=== PATIENT | female | born 1980 | race Caucasian/White ===

== ENCOUNTER → 2019-09-11 | Outpatient (CLI) | payer BC ==
[~2019-09-11] MED LIST: GADOBENATE DIMEGLUMINE 1 ML IV ONE
--- NOTE | 2019-09-11 11:57 | Diagnostic Imaging Report ---
History: Multiple sclerosis Comparison studies: None Technique: Precontrast brain: 3-D T2 flair with multiplanar reconstruction, axial T1 flair, and DWI Postcontrast brain: 3-D T1 with multiplanar reconstruction, axial T2. Post contrast cervical and thoracic spines: Sagittal T1, T2 and IR, axial T1 and T2. Intravenous contrast: 13 cc of MultiHance Findings: Brain MRI: T2 lesion load: Number:Approximately 5-8. Size:0.1-0.7 cm. Location: 1. Right frontal deep white matter) centrum semiovale) right subinsular juxtacortical white matter, right frontal deep white matter 2. No infratentorial lesions T1 hypointense foci: None Enhancing lesions: None Corpus callosum volume: Adequate for age Brain volume: Adequate for age Additional abnormalities: None. Cervical spine: Spinal Cord size: Normal in size and morphology from craniocervical junction to conus T2 lesion load:None T1 hypointense foci:None Enhancement: None Thoracic spine: Spinal Cord size: Normal in size and morphology from craniocervical junction to conus at T12-L1 T2 lesion load:None T1 hypointense foci:None Enhancement: None Additional comments: Alignment: Normal cervical lordosis. Normal thoracic kyphosis . Cervicomedullary junction: Patent foramen magnum. No Chiari one malformation. Soft tissues tissues: No signal abnormalities. Vertebral bodies: No fractures, infection or neoplasm. Incidental findings: None IMPRESSION: Brain: 1. Few small nonspecific supratentorial white matter T2 lesions, could be seen in chronic migraines, microvascular disease, normal patients and demyelination. No typical appearance of demyelinating lesions. 2. No enhancing lesions are seen Cervical spine: 1. Patent canal and foramina. 2. No cord signal intensity abnormality. Thoracic spine: 1. Patent canal and foramina. 2. No cord signal intensity abnormality. Signed by: DR Ted Tolbert M.D. on 09/11/2019 11:54 AM
== END ==
LOC: MRI 07:51
PROVIDERS: ATTEND Psychiatry & Neurology Neurology
DX: R90.82 White matter disease, unspecified (principal); R42 Dizziness and giddiness; R55 Syncope and collapse; R41.3 Other amnesia; G43.711 Chronic migraine without aura, intractable, with status migrainosus
CPT/HCPCS: 70553; 72156; 72157; A9577